=== PATIENT | male | born 1945 | race Caucasian/White ===

== ENCOUNTER 2017-06-23 05:42 | Day surgery (SDC) | payer MEDICARE, OTHER ==
[~2017-06-23 05:42] MED LIST: Cyclopentolate 1% Opth Drop 2 ML BOT FS SCH; Fluorouracil 100 MG, Enoxaparin Sodium 25 MG, EPINEPHrine 0.3 MG in Ophthalmic Irrigati... FS SCH; Phenylephrine HCl 2.5% Ophth Soln 5 ML BOT FS SCH
[2017-06-23] MEDS ORDERED: Cyclopentolate 1% Opth Drop 2 ML BOT ONE (06:02)
[2017-06-23] MEDS ORDERED: Phenylephrine HCl 2.5% Ophth Soln 5 ML BOT ONE (06:02)
[2017-06-23] MEDS ORDERED: Fentanyl 100 MCG/2 ML VIAL ONE (06:08)
[2017-06-23] MEDS ORDERED: Diprivan 20 ML ONE (06:08)
[2017-06-23] MEDS ORDERED: Midazolam HCl 2 mg/2 ml Vial ONE (06:08)
[2017-06-23] MEDS ORDERED: Lidocaine 2% PF 10 ML AMP (For Epidural Use) ONE (07:05)
[2017-06-23] MEDS ORDERED: Propofol 200 MG/20 ML VIAL ONE (07:05)
--- NOTE | 2017-06-23 09:13 | OP ---
DATE OF PROCEDURE: 06/23/2017 PREOPERATIVE DIAGNOSIS: Macular hole, right eye. POSTOPERATIVE DIAGNOSIS: Macular hole, right eye. PROCEDURE: Pars plana vitrectomy, internal limiting membrane peel, right eye. SURGEON: Dr. Arie Hughes ANESTHESIA: Local with monitored anesthesia care. COMPLICATIONS: None. PROCEDURE IN DETAIL: The patient was identified in the preoperative holding area. Appropriate info rmed consent for the planned surgical procedure on the right eye had been obtained. The patient was transported to the operative suite where appropriate cardiopulmonary monitoring was established. L ocal anesthesia was obtained using retrobulbar and modified Van Lint lid block using 50/50 mixture o f 4% lidocaine and 0.75% bupivacaine. The patient was prepped and draped in the usual sterile cosmo r for ophthalmic surgery on the right eye. Lid speculum was placed in the right eye. The 27 gauge trocars were placed in conjunctiva and sclera supratemporally, inferotemporally, and supranasally. Infusion line was placed inferotemporally. Light pipe and vitreous cutter were inserted into the ey e. Core of vitrectomy was performed. Posterior hyaloid face was elevated and peeled into the retin al periphery using vacuum suction. Indocyanine green dye was infused onto the posterior pole x1, id entifying the internal limiting membrane. This was elevated using membrane scraper and peeled acros s the macula using end-gripping forceps. Complete air fluid exchange was performed with 10 minutes being allowed for fluid to drain posteriorly. Indirect ophthalmoscopy was used to examine the retin a 360 degrees. No holes, breaks or tears were identified. A 28% sulfur hexafluoride gas was infuse d into the eye. Trocars were removed and eye was noted to retain pressure well. Retrobulbar [place] and subconjunctival Ancef were placed. Atropine and antibiotic ointment were placed, and the eye was patched and shielded. The patient was taken to the postoperative recovery unit in good conditio n having suffered no immediate perioperative complications. DISCHARGE INSTRUCTIONS: The patient was instructed to keep patch and shield on, avoid lifting or be nding, and follow up in the morning with Dr. Hughes.
== END 2017-06-23 08:43 | disposition home or self-care (01) ==
LOC: SDC 05:42
PROVIDERS: ATTEND Ophthalmology Retina Specialist
PROC: 08T43ZZ Resection of Right Vitreous, Percutaneous Approach (ICD-10-PCS; principal; 2017-06-23)
PROC: 08NE3ZZ Release Right Retina, Percutaneous Approach (ICD-10-PCS; 2017-06-23)
DX: H35.341 Macular cyst, hole, or pseudohole, right eye (principal); I10 Essential (primary) hypertension; E78.5 Hyperlipidemia, unspecified; F17.210 Nicotine dependence, cigarettes, uncomplicated; M19.90 Unspecified osteoarthritis, unspecified site; M54.9 Dorsalgia, unspecified; G89.29 Other chronic pain; Z79.82 Long term (current) use of aspirin; Z79.899 Other long term (current) drug therapy; Z88.8 Allergy status to other drugs, medicaments and biological substances; Z90.89 Acquired absence of other organs; Z98.890 Other specified postprocedural states; Z80.1 Family history of malignant neoplasm of trachea, bronchus and lung
CPT/HCPCS: 67025; J0171; J1650; J2001; J2250; J2704; J3010; J9190

== ENCOUNTER 2021-01-15 11:11 | Outpatient (CLI) | payer MEDICARE, OTHER ==
[2021-01-15 20:47] LABS: SARS-CoV-2 PCR by NAA Not Detected (NotDetected)
== END 2021-01-15 11:12 | disposition home or self-care (01) ==
LOC: LABBT 11:11
PROVIDERS: ATTEND Ophthalmology Retina Specialist
DX: Z01.812 Encounter for preprocedural laboratory examination (principal); H43.822 Vitreomacular adhesion, left eye; Z20.822 Contact with and (suspected) exposure to COVID-19
CPT/HCPCS: U0003; U0005; 87635

== ENCOUNTER 2021-01-20 07:04 | Day surgery (SDC) | payer MEDICARE, OTHER ==
[2021-01-19 10:09] VITALS: BMI 23.6
[~2021-01-20 07:04] MED LIST changes: -Cyclopentolate 1% Opth Drop 2 ML BOT FS SCH; +EPINEPHrine 0.3 MG in Ophthalmic Irrigation Solution 500 ML IRR SCH; +Fentanyl 100 MCG/2 ML VIAL ONE; -Fluorouracil 100 MG, Enoxaparin Sodium 25 MG, EPINEPHrine 0.3 MG in Ophthalmic Irrigati... FS SCH; +Midazolam HCl 2 mg/2 ml Vial ONE; -Phenylephrine HCl 2.5% Ophth Soln 5 ML BOT FS SCH
[2021-01-20] MEDS ORDERED: Phenylephrine 2.5% Ophth Soln 5 ML BOT ONE (08:29)
[2021-01-20] MEDS ORDERED: Cyclopentolate 1% Ophth Drops 15 ML BOT ONE (08:29)
[2021-01-20] MEDS ORDERED: PROPOFOL 200 MG/20 ML VIAL ONE (09:56)
[2021-01-20] MEDS ORDERED: Bupivacaine PF 0.75% SDV 10 ML ONE (09:56)
[2021-01-20] MEDS ORDERED: Maxitrol 0.1% Opth Oint 3.5 GM TUBE ONE (09:56)
[2021-01-20] MEDS ORDERED: Lidocaine 1% PF 5 ML VIAL ONE (09:56)
[2021-01-20] MEDS ORDERED: CEFAZOLIN 1 GM VIAL ONE (09:56)
[2021-01-20] MEDS ORDERED: Triamcinolone 40 MG/ML VIAL ONE (09:56)
[2021-01-20] MEDS ORDERED: Lidocaine 4% PF 5 ML AMP ONE (09:56)
== END 2021-01-20 11:38 | disposition home or self-care (01) ==
LOC: SDC 07:04
PROVIDERS: ATTEND Ophthalmology Retina Specialist
PROC: 08T53ZZ Resection of Left Vitreous, Percutaneous Approach (ICD-10-PCS; principal; 2021-01-20)
PROC: 08NF3ZZ Release Left Retina, Percutaneous Approach (ICD-10-PCS; 2021-01-20)
DX: H43.822 Vitreomacular adhesion, left eye (principal); H43.312 Vitreous membranes and strands, left eye; Z88.8 Allergy status to other drugs, medicaments and biological substances
CPT/HCPCS: J0171; J0690; J2250; J2704; J3010; J3301; J3490